=== PATIENT | female | born 1965 | race Caucasian/White ===

== ENCOUNTER 2017-09-01 13:24 | Day surgery (SDC) | payer OTHER ==
[~2017-09-01] VITALS: Ht 170.2 cm; Wt 105.2 kg
[~2017-09-01 13:24] MED LIST: OMEP40CA6 PO
[2017-09-01 14:22] VITALS: Ht 170.2 cm; Wt 105.2 kg
[2017-09-01] MEDS ORDERED: LIDOCAINE 100 MG SYRINGE ONE (15:20)
[2017-09-01] MEDS ORDERED: PROPOFOL 40 ML ONE (15:20)
[2017-09-01] MEDS ORDERED: FENTAnyl 50 MCG/ML VIAL ONE (15:21)
[2017-09-01 15:24] VITALS: BP 166/84; PULSE 92; RESP 16
--- NOTE | 2017-09-01 16:01 | OPPN ---
Date/Time of Note Date/Time of Note DATE: 09/01/17 TIME: 15:52 Proc Note GI Procedure Date 09/01/17 Indication: other (h/o gastric polyps) Pre-procedure Diagnosis h/o gastric polyps Post-procedure Diagnosis Impression: Mild distal esophagitis Small hiatal hernia 3mm fundal gastric polyp. Removed Mild gastritis. Rule H pylori. Biopsied Otherwise normal EGD. Plan: PPI therapy Review pathology F/u as scheduled . Procedure Performed: Endoscopy (plus Biopsies) Surgeon ASCENCION PANCHAL MD see signature line Elementary Librarian none Anesthesia Type: MAC Anesthesiologist: Zain Brown M.D. Tourniquet Time none EBL none Transfusion required none Biopsy 1: GASTRIC BODY AND ANTRUM Biopsy 2: GASTRIC FUNDAL POLYP Grafts/Implants none Tubes/Drains none Complication(s) none Disposition: home Procedure Description After informed consent, with the patient/relatives understanding the procedure, its indications, potential risks and complications, including but not limited to : allergic reaction, bleeding, perforation or infection, and after all pertinent questions were answered to the patients satisfaction, the patient/ relatives signed witnessed informed consent. Following this, premedication was administered slowly IV push under careful cardiovascular and respiratory monitoring with pulse oximetry, automatic blood pressure, and court monitor. Once the sedative effect was achieved the patient was place in the left lateral decubitus, the panendoscope was introduced and advanced under visual control. Careful examination of the upper gastrointestinal tract, both on insertion as well as withdrawal of the instrument disclosing the following findings: ESOPHAGUS: the mucosa of the entire esophagus was carefully examined and showed the following findings: There is mild erythema of the mucosa of the e.g. junction. Otherwise the mucosa appears within normal limits. There is no evidence of varices, neoplasm, or stricture. No Hiatal Hernia identified. STOMACH: Upon entrance to the stomach air was insufflated, the gastric gomes distended normally. The mucosa of the fundus, body and antrum of the stomach was carefully examined both head-on and on retroflexion, and showed the following findings: There is a small 3 mm polyp in the body of the stomach. Was ablated with biopsy forceps. There is mild erythema of the mucosa of the body and antrum the stomach. Biopsies were obtained to rule out H. pylori infection. Otherwise the mucosa appears within normal limits with no abnormalities. There is no evidence of ulcers or neoplasm. PYLORUS: The pylorus was carefully examined and showed the following findings: []the pylorus appears patent and within normal limits, with no evidence of gastric outlet obstruction. DUODENUM: The duodenal mucosa was carefully examined in the duodenal bulb as well as the second portion of the duodenum and showed the following findings: []the mucosa appears unremarkable with no evidence of duodenitis, ulcer or neoplasm. Copies To: CC: ASCENCION PANCHAL MD, MORDO MD Sep 01, 2017 16:01
--- NOTE | 2017-09-01 16:05 | OPPN ---
Date/Time of Note Date/Time of Note DATE: 09/01/17 TIME: 16:01 Proc Note GI Procedure Date 09/01/17 Indication: other (History of colonic polyps) Pre-procedure Diagnosis History of colonic polyps Post-procedure Diagnosis Impression: 5 mm sessile polyp distal sigmoid colon Moderate diverticulosis left side of the colon. Moderate-sized internal hemorrhoids. Otherwise normal colonoscopy to cecum. Plan: Follow up as scheduled] High fiber diet Annual hemoccult stool testing [Review pathology] [Surveillance colonoscopy in 5 years] . Procedure Performed: Colonoscopy (Plus polyp ablation) Surgeon see signature line Hull Grinder none Anesthesia Type: MAC Anesthesiologist: Zain Brown M.D. Tourniquet Time none EBL none Transfusion required none Biopsy 1: None Polyp 1: Distal sigmoid polyp Grafts/Implants none Tubes/Drains none Complication(s) none Disposition: home Procedure Description After informed consent, with the patient/relatives understanding the procedure, its indications and potential risks and complications, including but not limited to: Allergic reaction, bleeding, perforation, infection, and after all pertinent questions were answered to the patient's satisfaction, the patient/ relatives signed the witnessed informed consent. Following this, premedication was administered slowly IV push under careful cardiovascular and respiratory monitoring with pulse O[employer], automatic blood pressure, and data administrator. Once the sedative effect was achieved, the patient was placed in the left lateral decubitus position, digital rectal examination was performed. The colonoscope was then introduced and advanced under visual control throughout all segments of the colon including: the rectum, sigmoid, descending colon, splenic flexure, transverse colon, hepatic flexure, ascending colon and finally reaching the cecum which was clearly identified by transillumination, finger indentation and the ileocecal valve. Careful examination of the mucosa of the lower gastrointestinal tract both on insertion as well as withdrawal of the instrument disclosed the following findings: PREPARATION QUALITY: , [fair, procedure completed] RECTAL EXAM: The anorectal area was visualized examined and digital rectal examination performed with the following findings: No evidence of perirectal disease, no masses. COLONIC MUCOSA: The mucosa of all segments of the colon was carefully examined and showed the following findings: There is a 5 mm sessile polyp in the distal sigmoid colon. Ablated with biopsy forceps. There is moderate diverticulosis left side of the colon. There is moderate-sized internal hemorrhoids. Otherwise the examined mucosa appears within normal limits. There is no evidence of inflammatory changes, diverticular formation, other polyps or neoplasms, vascular malformation, or any other abnormality. The instrument was then withdrawn, the patient tolerated the procedure well and was transferred out of the Endoscopy Suite awake and in good condition to continue recovery under observation. Copies To: CC: ASCENCION PANCHAL MD, MORDO MD Sep 01, 2017 16:05
[2017-09-01 16:15] VITALS: BP 144/82; RESP 21
== END 2017-09-01 21:00 | disposition home or self-care (01) ==
LOC: GIL 13:24
PROVIDERS: ATTEND Internal Medicine Gastroenterology
DX: D12.2 Benign neoplasm of ascending colon (principal); K57.90 Diverticulosis of intestine, part unspecified, without perforation or abscess without bleeding; K64.8 Other hemorrhoids; K31.7 Polyp of stomach and duodenum; K20.9 Esophagitis, unspecified; K44.9 Diaphragmatic hernia without obstruction or gangrene; K29.70 Gastritis, unspecified, without bleeding; J45.909 Unspecified asthma, uncomplicated
CPT/HCPCS: 43239; 45380; 88305; 88312; J2001; J3010; Z7610